=== PATIENT | female | born 1995 ===

== ENCOUNTER 2025-07-15 05:20 | Inpatient (IN) | payer OTHER ==
[~2025-07-15 05:20] MED LIST: Acetaminophen/oxyCODONE 325-5 MG Tab PO PRN; Albuterol 0.083% 2.5 MG/3 ML Neb Soln NEB PRN; Nalbuphine 10 MG/1 ML Vial IVPUSH PRN; Naloxone 0.4 MG/ML SDV IVPUSH PRN; Ondansetron 4 MG/2 ML SDV IVPUSH PRN; diphenhydrAMINE 50 MG/ML SDV IVPUSH PRN; fentaNYL 100 MCG/2 ML SDV IVPUSH PRN; fentaNYL 50 MCG/ML SDV IVPUSH PRN
[2025-07-15] MEDS ORDERED: Sodium Chloride 0.9% 2.5 ML Syringe FLUSH PRN (05:24)
[2025-07-15] MEDS ORDERED: Sodium Chloride 0.9% 10 ML Syringe FLUSH PRN (05:24)
[2025-07-15] MEDS ORDERED: ceFAZolin 2 GM in Water For Injection, Sterile 20 ML IVPUSH ONE (05:24)
[2025-07-15] MEDS ORDERED: Citric Acid/Sodium Citrate Solution 30 ML Cup PO ONE (05:24)
[2025-07-15] MEDS ORDERED: Oxytocin/0.9 % Sodium Chloride 30 UNIT/500 ML BAG IV SCH (05:30)
[2025-07-15 06:12] LABS: MEAN PLATELET VOLUME 10.7 fL (9.4-12.3); NRBC ABSOLUTE 0.00 K/uL (0.00-0.02); NRBC PERCENT 0.0 /100WBC (0.0-0.2); PLATELET COUNT,PLT 235 K/uL (150-400); RED BLOOD CELL COUNT 4.62 M/uL (4.10-5.30); WHITE BLOOD CELL COUNT,WBC 7.37 K/uL (3.9-11.3)
[2025-07-15] MEDS ORDERED: fentaNYL 100 MCG/2 ML SDV ONE (07:23)
[2025-07-15] MEDS ORDERED: Ketorolac 30 MG/ML SDV ONE (07:23)
[2025-07-15] MEDS: Lactated Ringers 1,000 ML IV SCH ×2 (07:23→12:35)
[2025-07-15] MEDS ORDERED: Oxytocin 10 Units/1 ML SDV ONE ×2 (07:23→08:10)
[2025-07-15] MEDS ORDERED: Ropivacaine 0.5% 5 MG/ML 30 ML SDV ONE (07:23)
[2025-07-15] MEDS ORDERED: Dexamethasone Sod Phos Preservative Free 10 MG/ML Vial ONE (07:23)
[2025-07-15] MEDS ORDERED: Morphine PF 10 MG/10 ML SDV ONE (07:23)
[2025-07-15] MEDS ORDERED: Ondansetron 4 MG/2 ML SDV ONE (07:23)
[2025-07-15] MEDS ORDERED: Naloxone 0.4 MG/ML SDV IVPUSH PRN ×2 (08:51→08:54)
[2025-07-15] MEDS ORDERED: Oxytocin 10 Units/1 ML SDV IM PRN (08:51)
[2025-07-15] MEDS ORDERED: Lanolin 100% Cream 7 GM Tube TOP PRN (08:51)
[2025-07-15] MEDS ORDERED: diphenhydrAMINE 50 MG/ML SDV IVPUSH PRN ×2 (08:51→08:54)
[2025-07-15] MEDS ORDERED: fentaNYL 50 MCG/ML SDV IVPUSH PRN (08:54)
[2025-07-15] MEDS ORDERED: fentaNYL 100 MCG/2 ML SDV IVPUSH PRN (08:54)
[2025-07-15] MEDS ORDERED: Nalbuphine 10 MG/1 ML Vial IVPUSH PRN (08:54)
[2025-07-15] MEDS ORDERED: Ondansetron 4 MG/2 ML SDV IVPUSH PRN ×2 (08:54)
[2025-07-15] MEDS ORDERED: Albuterol 0.083% 2.5 MG/3 ML Neb Soln NEB PRN (08:54)
[2025-07-15] MEDS ORDERED: Ketorolac 30 MG/ML SDV IVPUSH SCH (09:00)
[2025-07-15 09:18] LABS: PH,UMBILICAL ARTERIAL 7.38 (7.18-7.38); PH,UMBILICAL VENOUS 7.37 (7.25-7.45)
[2025-07-15] MEDS: Ondansetron 4 MG/2 ML SDV IVPUSH PRN (11:53)
[2025-07-15] MEDS: Ketorolac 30 MG/ML SDV IVPUSH SCH (15:17)
[2025-07-16 06:03] LABS: BLOOD UREA NITROGEN,BUN 11.0 mg/dL (7.0-18.0); CARBON DIOXIDE,CO2 26.8 mmol/L (21.0-32.0); CHLORIDE,CL 103.0 mmol/L (98-107); CREATININE 0.9 mg/dL (0.6-1.0); EST CRCL DRUG DOSING (CG) 72.29 mL/min; GLUCOSE RANDOM 77.0 mg/dL (74-106); POTASSIUM,K 4.4 mmol/L (3.5-5.1); SODIUM,NA 137.0 mmol/L (136-145)
[2025-07-16 06:17] LABS: ESTIMATED GFR 88.0 mL/min (>60)
[2025-07-16] MEDS: Acetaminophen/oxyCODONE 325-5 MG Tab PO PRN (17:39)
[2025-07-17] MEDS: Measles, Mumps & Rubella Vaccine 0.5 ML SDV SUBCUT ONE (11:46)
== END 2025-07-17 12:30 | disposition home or self-care (01) | DRG 787 ==
LOC: MW.OB 05:20
PROVIDERS: ADMIT Obstetrics & Gynecology; ATTEND Obstetrics & Gynecology
PROC: 10D00Z1 Extraction of Products of Conception, Low, Open Approach (ICD-10-PCS; principal; 2025-07-15 08:00)
DX: O24.420 Gestational diabetes mellitus in childbirth, diet controlled (principal); D62 Acute posthemorrhagic anemia; O10.92 Unspecified pre-existing hypertension complicating childbirth; O34.219 Maternal care for unspecified type scar from previous cesarean delivery; Z3A.39 39 weeks gestation of pregnancy; Z37.0 Single live birth; O36.63X0 Maternal care for excessive fetal growth, third trimester, not applicable or unspecified; O90.81 Anemia of the puerperium
CPT/HCPCS: 36415; 80048; 82803; 82947; 85014; 85018; 85027; 86592; 86850; 86900; 86901; 90707; A9270-GY; J0166; J0665; J0690; J1100; J1885; J2274; J2371; J2405; J2590; J2795; J3010; J7120